=== PATIENT | male | born 1965 | race Caucasian/White ===

== ENCOUNTER 2017-04-19 16:18 | Emergency (ER) | payer MEDICAID ==
[2017-04-19 18:40] LABS: CARBON DIOXIDE 27.9 mmol/L (21-32); CHLORIDE SERUM 104 mmol/L (98-107); CREATININE SERUM 0.9 mg/dL (0.7-1.3); GFR1 > 60 mL/min; GLUCOSE SERUM 104 mg/dL (74-106); POTASSIUM SERUM 3.6 mmol/L (3.5-5.1); SODIUM SERUM 140 mmol/L (136-145)
[2017-04-19 18:45] LABS: ALBUMIN 4.2 g/dL (3.4-5.0); ALKALINE PHOSPHATASE 96 U/L (46-116); ALT/SGPT 42 U/L (16-63); AST/SGOT 25 U/L (15-37); BILIRUBIN TOTAL 1.2 mg/dL (0.20-1.00)
[2017-04-19 18:48] LABS: TOTAL PROTEIN, SERUM 8.7 g/dL (6.4-8.2)
[2017-04-19 20:59] VITALS: BP 138/70
== END 2017-04-19 20:59 | disposition home or self-care (01) ==
LOC: ED 16:18
PROVIDERS: Emergency Medicine
DX: R59.0 Localized enlarged lymph nodes (principal)
CPT/HCPCS: J7030; Q0092; Q9967

== ENCOUNTER 2018-11-05 10:41 | Emergency (ER) | payer MEDICAID ==
[~2018-11-05] VITALS: Ht 180.3 cm; Wt 107.5 kg
[2018-11-05 10:50] VITALS: Ht 180.3 cm; Wt 107.5 kg
[2018-11-05 11:12] VITALS: BP 145/97
== END 2018-11-05 11:12 | disposition home or self-care (01) ==
LOC: ED 10:41
DX: H10.89 Other conjunctivitis (principal)